=== PATIENT | male | born 1980 | race African-American/Black ===

== ENCOUNTER 2018-03-24 14:51 | Emergency (ER) | payer MEDICAID, SELFPAY ==
[2018-03-24 14:53] VITALS: BP 150/104; PULSE 76; RESP 15; TEMP 36.8; O2SAT 98; BMI 32.5
--- NOTE | 2018-03-24 16:52 | CT_ITS ---
STUDY: CT ABDOMEN AND PELVIS WITH CONTRAST REASON FOR EXAM: Male, 37 years old. Abdominal pain RADIATION DOSAGE (If Supplied By Facility): CTDIvol = ( 19.42 ) mGy, DLP = ( 1296.05 ) mGycm TECHNIQUE: Transaxial images were obtained from the dome of the diaphragm to the symphysis pubis without oral contrast. 100ML ml of Isovue 300 contrast was administered. Sagittal and coronal images were reconstructed. Individualized dose optimization techniques were used for this CT. COMPARISON: None. FINDINGS: The visualized lung bases are clear. The visualized portions of the heart and pericardium are within normal limits. There are no calcified gallstones present. The liver is within normal limits. There are no suspicious hepatic lesions. The spleen is normal in size. The pancreas is within normal limits. The adrenal glands are within normal limits. There are no renal or ureteral stones. There is no hydronephrosis. There are no focal renal lesions. Normal visualized stomach. There is no bowel obstruction or inflammation. The appendix is visualized and appears normal. The aorta is normal in caliber. There is no abdominal or pelvic free air, free fluid, fluid collection or lymphadenopathy. There are no destructive osseous lesions. CT/Abdomen/Pelvis WITH Contrast IMPRESSION: No acute abdominal or pelvic pathology. Electronically Signed: Basil Herrera, at 19:20 EDT Tel , Service support ,
[2018-03-24 17:27] VITALS: BP 159/107; PULSE 64; RESP 14; O2SAT 99
[2018-03-24] MEDS: Morphine 4 MG/ML Syringe IV (17:35)
[2018-03-24] MEDS: 0.9% Normal Saline 1,000 ML 1000 ML IV (17:35)
[2018-03-24] MEDS: Ondansetron 4 MG/2 ML Vial IV (17:35)
--- NOTE | 2018-03-24 17:46 | ED.VISSUMM ---
- ER Visit Summary Date of Service: 03/24/18 Chief Complaint: Abdominal pain History of Present Illness: The patient is a 37 M presenting with abdominal pain which started yesterday. He has pain in the mid abdomen and right lower quadrant. He denies nausea or vomiting. Denies diarrhea or constipation. He has had decreased appetite today. Denies fever chills. No history of similar symptoms. Physical Examination: Vitals are stable. Patient is afebrile. Alert no acute distress. HEENT exam is unremarkable. Neck is supple. Lungs are clear and equal bilaterally. Heart is regular rate and rhythm. Abdomen is soft right lower quadrant tenderness with no rebound or guarding Extremities are unremarkable. Skin is warm and dry. No focal neurologic deficit. Remainder of exam is unremarkable. Emergency Department Course and Treatment: Patient is given morphine, Zofran IV with improvement. CBC, chemistries unremarkable. Lipase is normal. Urinalysis unremarkable. CT abdomen pelvis shows no acute abdominal or pelvic pathology. Patient is resting comfortably on reevaluation, he will be given a prescription for Bentyl. Advised to follow-up with his primary care physician. Advised return to ED for worsening complaints. Disposition: Discharge home Impression: Abdominal pain This note was generated with [employer] dictation software. It may contain incorrect words, spelling, and punctuation that were not noted in review of the chart prior to signing ED Disposition - Plan for ED Patient: Chief Complaint: Abd Pain Referrals: Darrin Pearce [Primary Care Provider] -
[2018-03-24 17:54] LABS: Bacteria 0 SEEN /hpf (None Seen); Squamous Epithelial Cells - UA 0 SEEN /hpf (0-5)
[2018-03-24 17:57] LABS: Absolute Lymphocyte Count 2.72 X10^3/ul (0.83-4.51); Absolute Neutrophil Count 3.4 X10^3/uL (2.0-7.7); Basophil# 0.01 X10^3/uL; Basophil% 0.2 % (0-1); Eosinophil# 0.29 X10^3/uL; Eosinophils% 4.4 % (0-5); Hematocrit 44.4 % (40-54); Lymphocyte # 2.72 X10^3/ul (4.0); Lymphocyte % 41.1 % (19-41); Mean Corp Hgb Conc 33.8 g/gl (32-36); Mean Corpuscular Hgb 28.5 pg (27.0-32.0); Mean Corpuscular Volume 84.4 fL (80-94); Mean Platelet Vol. 10.3 fl (6.2-12.0); Monocyte# 0.23 X10^3/uL; Monocyte% 3.5 % (0-10); Neutrophil # 3.36 X10^3/uL (2.7-7.7); Neutrophil % 50.8 % (47-70); Platelet Count 195 K/mm3 (150-450); RBC Distribution Width CV 13.5 % (11.6-14.6); Red Blood Count 5.26 M/mm3 (4.6-6.2); White Blood Count 6.6 K/mm3 (4.4-11.0)
[2018-03-24 17:58] LABS: POSITIVE COUNT NO; POSITIVE DIFFERENTIAL NO; POSITIVE MORPHOLOGY NO
[2018-03-24 18:00] LABS: Color, Urine Yellow (Yellow); Glucose, Dipstick Normal (Normal); Ketone-Dipstick Negative (Negative); Leukocyte Esterase-Dipstick Negative /ul (Negative); Nitrite-Dipstick Negative (Negative); Occult Blood-Urine Negative /ul (Negative); Protein-Dipstick Negative (Negative); Specific Gravity, Urine 1.015 (1.002-1.030); Urine Bilirubin Dipstick Negative (Negative); Urine Clarity Clear (Clear); Urine Urobilinogen Normal (Normal)
[2018-03-24 18:14] LABS: ALB/GLOB Ratio 0.8 RATIO (0.9-2.4); AST(SGOT) 24 U/L (15-37); Alanine Aminotransfer ALT/SGPT 57 U/L (16-61); Albumin, Serum 3.6 g/dL (3.2-5.0); Alkaline Phosphatase 88 U/L (45-117); Anion Gap 9 (5-15); BUN 12 mg/dL (7-18); BUN/Creat Ratio 11.2 RATIO (10-20); Calcium,Total 9.4 mg/dL (8.5-10.1); Chloride 101 mmol/L (98-107); Creatinine, Serum 1.07 mg/dL (0.70-1.30); EST Glomerular Filtration Rate 82 mL/min (>60); Est Glom Filt Rate - Afr Amer 99 mL/min (>60); Estimated Creatinine Clearance 111.88 ml/min; Globulin 4.7 g/dL (2.2-4.2); Glucose 87 mg/dL (74-106); Lipase 110 U/L (73-393); Potassium 3.6 mmol/L (3.5-5.1); Protein, Total 8.3 g/dL (6.4-8.2); Sodium Level 140 mmol/L (136-145)
[2018-03-24 18:19] LABS: Mucous, Urine 2+ /hpf (<or=2+); Red Blood Cells-Urine 0-5 SEEN /hpf (0-5); White Blood Cells 0-5 SEEN /hpf (0-5)
[2018-03-24 19:23] VITALS: BP 148/102; PULSE 64; RESP 17; O2SAT 99
--- NOTE | 2018-03-24 20:05 | ED.DEP ---
ED Disposition - Plan for ED Patient: Chief Complaint: Abd Pain Instructions: ED Abdominal Pain Unkn Cause Prescriptions: Dicyclomine HCl [Bentyl] 20 mg PO TIDAC #20 capsule Referrals: Darrin Pearce [Primary Care Provider] -
[2018-03-24 20:22] VITALS: BP 144/104; PULSE 58; RESP 18; O2SAT 98
== END 2018-03-24 20:20 | disposition home or self-care (01) ==
LOC: ED 17:16
PROVIDERS: Emergency Provider Emergency Medicine; Family Provider Student in an Organized Health Care Education/Training Program; PCP Student in an Organized Health Care Education/Training Program
DX: R10.31 Right lower quadrant pain (principal)
CPT/HCPCS: 74177; 80053; 81001; 83690; 85025; 96361; 96374; 96375; 99283; J7030; Q9967; A4216; J2405

== ENCOUNTER 2018-12-27 20:42 | Emergency (ER) | payer MEDICAID, SELFPAY ==
[2018-12-27 20:44] VITALS: BP 165/110; PULSE 60; RESP 18; TEMP 36.7; O2SAT 100; BMI 31.6
--- NOTE | 2018-12-27 21:07 | US_ITS ---
HISTORY: RT TESTICLE PAIN EXAMINATION: US Scrotum (Contents) TECHNIQUE: Realtime ultrasound of the testicles was performed with grayscale, Color Doppler and spectral Doppler analysis. COMPARISON: None FINDINGS: TESTES: RIGHT TESTIS SIZE: 4.4 x 2.7 x 2.5 cm. LEFT TESTIS SIZE: 4.8 x 2.7 x 2.8 cm. Normal in size and echotexture, without focal lesion. COLOR DOPPLER: Normal arterial flow present in the testicles with monophasic waveforms. EPIDIDYMIDES: Right mildly enlarged and hyperemic. Left normal. COLOR DOPPLER: Normal color Doppler flow pattern in the epididymi. HYDROCELE: Small right hydrocele. VARICOCELE: None. US/Testicular with Arterial Flow IMPRESSION: Right epididymitis. at [id number] Reported and signed by: Deshaun Marroquin MD Electronically Signed: Deshaun Marroquin, at 22:44 EDT Tel , Service support ,
[2018-12-27] MEDS: Ondansetron 4 MG/2 ML Vial IV (21:14)
[2018-12-27] MEDS: Ketorolac 30 MG/ML Syringe IV (21:14)
[2018-12-27] MEDS: 0.9% Normal Saline 1,000 ML 1000 ML IV (21:14)
[2018-12-27 21:30] LABS: Absolute Lymphocyte Count 2.88 X10^3/ul (0.83-4.51); Absolute Neutrophil Count 2.6 X10^3/uL (2.0-7.7); Basophil# 0.03 X10^3/uL; Basophil% 0.5 % (0-1); Eosinophils% 4.8 % (0-5); Lymphocyte # 2.88 X10^3/ul (4.0); Lymphocyte % 45.9 % (19-41); Mean Corp Hgb Conc 34.1 g/gl (32-36); Mean Corpuscular Hgb 28.6 pg (27.0-32.0); Mean Corpuscular Volume 83.8 fL (80-94); Mean Platelet Vol. 10.2 fl (6.2-12.0); Monocyte# 0.51 X10^3/uL; Monocyte% 8.1 % (0-10); Neutrophil # 2.55 X10^3/uL (2.7-7.7); Neutrophil % 40.5 % (47-70); POSITIVE COUNT NO; POSITIVE DIFFERENTIAL NO; POSITIVE MORPHOLOGY NO; Platelet Count 200 K/mm3 (150-450); RBC Distribution Width CV 13.1 % (11.6-14.6); RBC Distribution Width SD 39.3 fl (35.1-43.9); Red Blood Count 5.25 M/mm3 (4.6-6.2); White Blood Count 6.3 K/mm3 (4.4-11.0)
[2018-12-27 21:45] LABS: Anion Gap 7 (5-15); BUN 16 mg/dL (7-18); BUN/Creat Ratio 14.7 RATIO (10-20); Chloride 106 mmol/L (98-107); Creatinine, Serum 1.09 mg/dL (0.70-1.30); EST Glomerular Filtration Rate 80 mL/min (>60); Est Glom Filt Rate - Afr Amer 97 mL/min (>60); Estimated Creatinine Clearance 105.79 ml/min; Glucose 101 mg/dL (74-106); Potassium 3.5 mmol/L (3.5-5.1); Sodium Level 141 mmol/L (136-145)
[2018-12-27 21:53] LABS: Squamous Epithelial Cells - UA 0 SEEN /hpf (0-5)
[2018-12-27 21:54] LABS: Color, Urine Yellow (Yellow); Glucose, Dipstick Normal (Normal); Ketone-Dipstick Negative (Negative); Leukocyte Esterase-Dipstick 25 /ul (Negative); Nitrite-Dipstick Negative (Negative); Occult Blood-Urine Negative /ul (Negative); Protein-Dipstick Negative (Negative); Urine Bilirubin Dipstick Negative (Negative); Urine Clarity Clear (Clear); Urine Urobilinogen Normal (Normal)
[2018-12-27 22:08] LABS: Bacteria RARE /hpf (None Seen); Mucous, Urine 1+ /hpf (<or=2+); Red Blood Cells-Urine 0-5 SEEN /hpf (0-5); White Blood Cells 0-5 SEEN /hpf (0-5)
[2018-12-27 22:44] VITALS: BP 156/108; PULSE 56; RESP 15; TEMP 36.8; O2SAT 97
[2018-12-27 23:27] VITALS: PULSE 52; RESP 18; O2SAT 97
--- NOTE | 2018-12-27 23:32 | ED.VISSUMM ---
- ER Visit Summary Date of Service: 12/27/18 Chief Complaint: Testicle pain History of Present Illness: The patient is a 38 M with right testicle pain that started today after sexual intercourse. He did possibly see some blood in his semen. Also reports back pain. No fevers. No history of kidney stones. No direct trauma or other complaints. Physical Examination: Afebrile and vital signs unremarkable. Right testicle is tender to palpation. Cremasteric reflex appears intact. No masses or lesions. Abdomen is soft and nontender. Test Results: Urinalysis unremarkable. CBC and BMP unremarkable. Ultrasound shows right-sided epididymitis Emergency Department Course and Treatment: Patient treated with fluids, Toradol, Zofran while awaiting results. Workup was consistent with epididymitis. Patient was treated with ceftriaxone and Levaquin. Use anti-inflammatories and scrotal support at home. Follow-up with urology. Return for new or worsening issues Treatment Plan: As above Disposition: Discharge Impression: 1. Right epididymitis This note was generated with [employer] dictation software. It may contain incorrect words, spelling, and punctuation that were not noted in review of the chart prior to signing ED Disposition - Plan for ED Patient: Referrals: Darrin Pearce [Primary Care Provider] -
--- NOTE | 2018-12-27 23:35 | ED.DEP ---
ED Disposition - Plan for ED Patient: Instructions: ED Epididymitis Prescriptions: levoFLOXacin tablet [Levaquin] 500 mg PO DAILY 9 Days #9 tab Naproxen [Naprosyn] 500 mg PO BID PRN #20 tab Referrals: Aleksandar Giles MD [STAFF PHYSICIAN] -
[2018-12-27] MEDS: Ceftriaxone 500 MG Vial 250 MG IM (23:46)
[2018-12-27] MEDS: levoFLOXacin 500 MG Tablet PO (23:46)
[2018-12-28 00:09] VITALS: BP 156/108; PULSE 53; RESP 18; O2SAT 98
== END 2018-12-28 00:10 | disposition home or self-care (01) ==
PROVIDERS: Emergency Provider Emergency Medicine; Family Provider Student in an Organized Health Care Education/Training Program; PCP Student in an Organized Health Care Education/Training Program
DX: N45.1 Epididymitis (principal)
CPT/HCPCS: 76870; 80048; 81001; 85025; 93976; 96361; 96372; 96374; 96375; 99284; J7030; A4216; J2405